=== PATIENT | male | born 1955 | race African-American/Black ===

== ENCOUNTER → 2020-12-19 06:48 | Outpatient (CLI) | payer OTHER, SELFPAY ==
[2020-12-20 01:17] LABS: SARS-CoV-2 RNA PCR Negative
== END ==
PROVIDERS: PCP Internal Medicine; Visit Provider Internal Medicine
DX: Z20.822 Contact with and (suspected) exposure to COVID-19 (principal); R09.89 Other specified symptoms and signs involving the circulatory and respiratory systems
CPT/HCPCS: C9803; U0003; U0005

== ENCOUNTER 2020-12-21 03:40 | Emergency (ER) | payer OTHER, SELFPAY ==
--- NOTE | ~2020-12-21 | XR_ITS ---
EXAMINATION: XR chest 1V portable INDICATION: Cough and congestion TECHNIQUE: Portable AP chest at 0411 hours COMPARISON: 08/29/2019 FINDINGS: There are patchy bilateral airspace opacities. No pleural effusion or pneumothorax is ident ified. The heart size is normal. IMPRESSION: 1. Patchy bilateral airspace opacities, consistent with atelectasis versus pneumonia. Reviewed, dictated and finalized at location A. IMPRESSION: 1. Patchy bilateral airspace opacities, consistent with atelectasis versus pneu monia.
[2020-12-21 03:43] VITALS: BP 156/82; PULSE 77; RESP 18; TEMP 36.1; O2SAT 100
[2020-12-21 04:02] LABS: Basophils Percent Auto 0.6 % (0.2-1.2); Eosinophils Absolute Auto 0.5 K/mm3 (0-0.3); Eosinophils Percent Auto 7.1 % (0-4.4); Hematocrit 40.2 % (42.0-52.0); Hemoglobin 13.6 g/dL (14.0-18.0); Immature Granulocyte Absolute 0.01 K/mm3 (0.00-0.031); Immature Granulocyte Percent A 0.2 % (0-0.5); Lymphocytes Absolute Auto 1.77 K/mm3 (0.9-3.2); Lymphocytes Percent Auto 27.8 % (18.3-44.2); Mean Corpuscular HGB Conc 33.8 g/dl (32-36); Mean Corpuscular Hemoglobin 30.1 pg (26-34); Mean Corpuscular Volume 88.9 fl (80-100); Mean Platelet Volume 9.4 fl (7.4-10.4); Monocytes Absolute Auto 0.6 K/mm3 (0.1-0.6); Monocytes Percent Auto 9.9 % (2.6-8.5); Neutrophils Absolute Auto 3.5 K/mm3 (1.3-6.7); Neutrophils Percent Auto 54.4 % (45.5-73.1); Platelet Count Result 227 k/mm3 (150-375); Red Blood Count 4.52 M/mm3 (4.6-6.20); Red Cell Distribution Width 12.9 % (11.5-14.5); White Blood Count 6.4 K/mm3 (4.5-10.0)
[2020-12-21 04:12] LABS: Alanine Aminotransferase 45 U/L (4-50); Albumin Level 4.6 g/dL (3.5-5.1); Alkaline Phosphatase 61 U/L (38-126); Anion Gap 7 mmol/L (8-16); Aspartate Amino Transferase 44 U/L (17-59); Bilirubin,Total 1.3 mg/dL (0.2-1.3); Blood Urea Nitrogen 20 mg/dL (9-20); Calcium 8.9 mg/dL (8.4-10.2); Carbon Dioxide 32 mmol/L (22-30); Chloride 100 mmol/L (98-107); Estimated CRCL calculation 57 ml/min; Estimated Glomerular Filt Rate 57; Glucose 124 mg/dL (75-110); Potassium 3.6 mmol/L (3.4-5.0); Sodium 139 mmol/L (137-145)
--- NOTE | 2020-12-21 04:17 | ED.URI ---
HPI - URI/Sore Throat General Chief Complaint: Upper Respiratory Infection Stated Complaint: congestion x 5 days, cough, kent Time Seen by Provider: 12/21/20 03:48 History of Present Illness HPI Narrative: Cough and chest congestion for the past 5 days. He feels as though there is phlegm that he cannot clear in his chest. No SOB, fever, chest pain. He does not smoke. Mild ankle swelling chronically. Related Data Home Medications Medication Instructions Recorded Confirmed hydrochlorothiazide 25 mg tablet 25 mg PO DAILY 10/05/20 10/05/20 losartan 100 mg tablet 100 mg PO DAILY 10/05/20 10/05/20 Allergies Allergy/AdvReac Type Severity Reaction Status Date / Time lisinopril AdvReac Mild COUGH Verified 12/21/20 03:42 muscle relaxant-unknown name Allergy Mild Ulcers Uncoded 12/21/20 03:42 Review of Systems Review of Systems: All systems reviewed & are unremarkable except as noted in HPI and below Constitutional: Constitutional: Denies chills, Denies fever(s) and Denies weakness ENT: Reports system reviewed and no additional complaints, except as documented Cardiovascular: Cardiovascular: Denies chest pain Respiratory: Respiratory: Reports chest congestion, Reports cough and Denies dyspnea Gastrointestinal: Gastrointestinal: Reports no additional gastrointestinal complaints, Denies abdominal pain, Denies nausea and Denies vomiting Neurologic: Reports system reviewed and no additional complaints, except as documented [facility] [place] Past Medical History Medical History Complex tear of medial meniscus of left knee as current injury Effusion of left knee Hypertension Obstructive sleep apnea Primary osteoarthritis of both knees Family History Family History Sibling Lung cancer Mother Diabetes mellitus Hypertension Father Hypertension Other Family history of arthritis Family history of cardiovascular disease Family history of malignant neoplasm Social History Social History Smoking status: Never smoker Alcohol intake: current Gender identity (if verbalized by the patient): Male Sexual Orientation (if Verbalized by the Patient): Straight or Heterosexual Exam Const: General: healthy appearing, no acute distress and alert Orientation/consciousness: patient oriented x3 HENMT: Head: normal to inspection Neck: Neck: normal visual inspection and no lymphadenopathy Chest: Chest palpation & inspection: normal inspection of the chest Resp: Effort & Inspection: normal respiratory effort and not labored Auscultation: wheezes Cardio: Rate: regular rate Rhythm: regular rhythm GI: GI Palp: Yes Soft to palpation and No Tenderness to palpation present (GI) Skin: General skin exam: normal color Neuro: General: patient oriented x3 and moves all extremities Speech: normal speech Extrem: General: normal to inspection and no edema Course Vital Signs Vital signs: Vital Signs Temperature 36.1 C L 12/21/20 03:43 Pulse Rate 77 12/21/20 03:43 Respiratory Rate 18 12/21/20 03:43 Blood Pressure 156/82 H 12/21/20 03:43 Pulse Oximetry 100 12/21/20 03:43 Temperature 36.3 C L 12/21/20 05:48 Pulse Rate 62 12/21/20 05:48 Respiratory Rate 16 12/21/20 05:48 Blood Pressure 144/89 H 12/21/20 05:48 Pulse Oximetry 100 12/21/20 05:48 MDM - URI/Sore Throat Differential Diagnosis Differential diagnosis: Likely upper respiratory infection, viral infection, bronchitis and other (pneumonia) Medical Records Attestation: I reviewed the patient's medical records. Lab Data Attestation: I reviewed the patient's lab results. Result diagrams: 12/21/20 03:54 12/21/20 03:54 Labs: Lab Results 12/21/20 12/21/20 12/21/20 Range/Units 03:54 03:54 03:54 WBC 6.4 (4.5-10.0) K/mm3 RBC 4.52 L (
[2020-12-21 04:45] VITALS: PULSE 57; RESP 20
[2020-12-21] MEDS: ALBUTEROL SULFATE NEB 2.5 MG/0.5 ML INH 5 MG INHALATION (04:51)
[2020-12-21] MEDS: IPRATROPIUM BR 0.02% INH SOLN 0.5 MG/2.5 ML VIAL INHALATION (04:52)
[2020-12-21 04:55] VITALS: PULSE 56; RESP 20
[2020-12-21 04:55] LABS: NT Pro B Type Natriuretic Pept 23 PG/ML (5-100)
[2020-12-21 05:48] VITALS: BP 144/89; PULSE 62; RESP 16; TEMP 36.3; O2SAT 100
== END 2020-12-21 05:49 | disposition home or self-care (01) ==
PROVIDERS: Emergency Provider Emergency Medicine; PCP Internal Medicine
DX: J40 Bronchitis, not specified as acute or chronic (principal); I10 Essential (primary) hypertension; G47.33 Obstructive sleep apnea (adult) (pediatric); M17.0 Bilateral primary osteoarthritis of knee
CPT/HCPCS: 36415; 71045; 80053; 83880; 85025; 94640; 99283

== ENCOUNTER 2020-12-29 14:22 | Outpatient (CLI) | payer OTHER, SELFPAY ==
--- NOTE | ~2020-12-29 | US_ITS ---
EXAMINATION:US venous doppler LE LT INDICATION:Left leg pain TECHNIQUE: Multiple grayscale, color flow and Doppler images of the left lower extremity deep venous systems were obtained and reviewed. COMPARISON:06/10/2011 FINDINGS: The common femoral, superficial femoral and popliteal veins demonstrate normal respiratory variation, augmentation and compressibility. Color flow is also seen within the posterior tibial, pe roneal, greater saphenous and profunda veins. IMPRESSION: 1: No lower extremity deep venous thrombosis. Reviewed, dictated and finalized at location B.
== END 2020-12-29 14:23 ==
PROVIDERS: PCP Internal Medicine; Visit Provider Nurse Practitioner
DX: M79.605 Pain in left leg (principal)
CPT/HCPCS: 93971

== ENCOUNTER 2021-06-28 11:30 | Observation (INO) | payer OTHER, SELFPAY ==
[2021-06-28] VITALS (12 sets, daily range): BP systolic 157–196; BP diastolic 59–89; PULSE 54–83; RESP 11–20; TEMP 36.2–36.8; O2SAT 98–100; BMI 36.0
--- NOTE | ~2021-06-28 | XR_ITS ---
EXAMINATION: XR chest 2V EXAM DATE: 06/28/2021 12:00 INDICATION: Left-sided chest pain. Hypertension. TECHNIQUE: Frontal and lateral projections of the chest obtained and reviewed. Comparison is made to prior examination from 12/21/2020. FINDINGS: The lungs are clear. There are no pleural effusions. The cardiomediastinal silhouette is within normal limits. There is no pneumothorax suspected. The bones and soft tissues are unremarkab le. IMPRESSION: No acute cardiopulmonary findings. Reviewed, dictated and finalized at location B.
--- NOTE | 2021-06-28 11:33 | ECG_ITS ---
Measurements Intervals [place] Rate: 68 P: 22 MI: 200 QRS: -16 QRSD: 91 T: 31 QT: 384 QTc: 409 Interpretive Statements SINUS RHYTHM BASELINE ARTIFACT- I, II, III, AVR, AVF, V2-V6 NORMAL ECG Electronically Signed On 06-28-2021 11:42:54 CDT by Gregor Lopez D.O.
[2021-06-28] MEDS: ASPIRIN 81 MG CHEWABLE TABLET 324 MG PO (11:45)
[2021-06-28 11:52] LABS: Basophils Percent Auto 0.5 % (0.2-1.2); Eosinophils Absolute Auto 0.3 K/mm3 (0-0.3); Eosinophils Percent Auto 5.3 % (0-4.4); Hematocrit 43.2 % (42.0-52.0); Hemoglobin 14.8 g/dL (14.0-18.0); Immature Granulocyte Absolute 0.01 K/mm3 (0.00-0.031); Immature Granulocyte Percent A 0.2 % (0-0.5); Lymphocytes Absolute Auto 1.97 K/mm3 (0.9-3.2); Lymphocytes Percent Auto 33.5 % (18.3-44.2); Mean Corpuscular HGB Conc 34.3 g/dl (32-36); Mean Corpuscular Hemoglobin 30.6 pg (26-34); Mean Corpuscular Volume 89.4 fl (80-100); Mean Platelet Volume 9.4 fl (7.4-10.4); Monocytes Absolute Auto 0.4 K/mm3 (0.1-0.6); Monocytes Percent Auto 7.3 % (2.6-8.5); Neutrophils Absolute Auto 3.1 K/mm3 (1.3-6.7); Neutrophils Percent Auto 53.2 % (45.5-73.1); Platelet Count Result 230 k/mm3 (150-375); Red Blood Count 4.83 M/mm3 (4.6-6.20); Red Cell Distribution Width 13.2 % (11.5-14.5); White Blood Count 5.9 K/mm3 (4.5-10.0)
[2021-06-28 11:57] LABS: INR 0.9; Prothrombin Time 12.2 Seconds (11.1-14.7)
[2021-06-28 11:58] LABS: Partial Thromboplastin Time 25.2 SECONDS (22.3-36.8)
--- NOTE | 2021-06-28 12:19 | ED.GENADULT ---
HPI - General Adult General Chief complaint: Chest Pain Stated complaint: chest pain over the weekend Time Seen by Provider: 06/28/21 11:40 Source: patient History of Present Illness HPI narrative: Patient is a 65 y/o male complaining intermittent chest pain since 3 days ago. He describes his pain as an ache and rates it as 10/10 at worst but 0/10 currently. He states that his pain radiates to his left shoulder when it occurs. He took Aspirin at times which did not seem to help. He states that he always feels SOB which is not new. He has no cough or fever. Related Data Allergies Allergy/AdvReac Type Severity Reaction Status Date / Time lisinopril AdvReac Mild COUGH Verified 06/28/21 11:37 muscle relaxant-unknown name Allergy Mild Ulcers Uncoded 06/28/21 11:37 Review of Systems Constitutional: Constitutional: Denies chills, Denies fever(s), Denies headache(s) and Denies weakness Eyes: Eyes: Denies blurry vision ENT: Denies headache(s) and Denies neck pain Cardiovascular: Cardiovascular: Reports chest pain and Reports dyspnea Respiratory: Respiratory: Denies cough and Reports dyspnea Gastrointestinal: Gastrointestinal: Denies abdominal pain, Denies diarrhea, Denies nausea and Denies vomiting Genitourinary: Genitourinary: Denies hematuria and Denies dysuria Musculoskeletal: Musculoskeletal: Denies back pain and Denies neck pain Neurologic: Denies headache(s) and Denies weakness PMF Past Medical History Medical History (Updated 06/28/21 @ 14:46 by Marissa Rocha MD) Complex tear of medial meniscus of left knee as current injury Effusion of left knee Hyperlipidemia Hypertension Obstructive sleep apnea Primary osteoarthritis of both knees Family History Family History Sibling Lung cancer Mother Diabetes mellitus Hypertension Father Hypertension Other Family history of arthritis Family history of cardiovascular disease Family history of malignant neoplasm Social History Social History (Updated 04/06/21 @ 11:23 by Kim Mahajan MA) Smoking packs per day: 0 Smoking cigarettes per day: 0.0 Smoking status: Never smoker Second hand tobacco smoke exposure: Yes Alcohol intake: current Drinks per week: 4 Substance use: never Living arrangements: with family Gender identity (if verbalized by the patient): Male Sexual Orientation (if Verbalized by the Patient): Straight or Heterosexual Spiritual care concerns: No Exam Const: General: no acute distress and well developed Orientation/consciousness: oriented to person, oriented to place, oriented to time and patient oriented x3 HENMT: Head: normocephalic Ears: external ears normal General nose exam: Normal external nose present Eyes: General: appearance normal, both eyes and all related structures Conjunctivae: conjunctivae normal Neck: Neck: normal visual inspection and full ROM Chest: Chest palpation & inspection: normal inspection of the chest and no tenderness Resp: Effort & Inspection: normal respiratory effort Auscultation: clear to auscultation bilaterally Cardio: Rate: regular rate Rhythm: regular rhythm GI: GI Palp: No abdominal tenderness and Yes Soft to palpation Skin: General skin exam: normal color and turgor normal Neuro: General: oriented to person, oriented to place, oriented to time and patient oriented x3 Cognition (Neuro): normal cognition Extrem: General: normal to inspection, full ROM and no pedal edema Psych: Appearance: grossly normal Mental Status: mental status grossly normal Affect: normal affect Course Consultations Consultation #1: Discussed with Dr. Jones, who agrees to admit. Date: 06/28/21 Time: 14:19 Vital Signs Vital signs: Vital Signs Temperature 36.8 C 06/28/21 11:34 Pulse Rate 65 06/28/21 11:34 Respiratory Rate 14 06/28/21 11:34 Blood Pressure 182/89 H 06/28/21 11:34 Pulse Oximetry 100
[2021-06-28 12:25] LABS: D Dimer 0.24 ug/mL (<0.48)
[2021-06-28 12:58] LABS: Anion Gap 9 mmol/L (8-16); Blood Urea Nitrogen 16 mg/dL (9-20); Calcium 9.4 mg/dL (8.4-10.2); Carbon Dioxide 27 mmol/L (22-30); Chloride 105 mmol/L (98-107); Estimated CRCL calculation 67 ml/min; Estimated Glomerular Filt Rate > 60; Glucose 98 mg/dL (65-110); Potassium 3.9 mmol/L (3.4-5.0); Sodium 141 mmol/L (137-145)
[2021-06-28 13:08] LABS: Troponin I < 0.012 ng/mL (0.000-0.034)
[2021-06-28] MEDS: amLODIPine BESYLATE 5 MG TABLET 10 MG PO (13:49)
[2021-06-28 14:55] LABS: Troponin I < 0.012 ng/mL (0.000-0.034)
--- NOTE | 2021-06-28 15:20 | ADMGEN ---
This patient, Joey Mcmahon, was admitted to [facility]. Patient/family oriented to hospital policies and general routines including ID bracelet, bed and alarms, visiting hours, pain management, procedures, bathroom and other care routines, personal items, smoking policy, room service/diet, and visiting hours. Information on how to activate the Rapid Response Team has been discussed. Patient/Family are encouraged to report perceived risks to care and to ask questions if they do not understand what they are told or what they should do.
--- NOTE | 2021-06-28 15:30 | PC.NURSE ---
Pt up in chair eating heart healthy meal ordered by ROUTE VENDING MACHINE SERVICER for pt.
--- NOTE | 2021-06-28 17:24 | ECG_ITS ---
Measurements Intervals [place] Rate: 62 P: 48 VA: 215 QRS: 16 QRSD: 93 T: 29 QT: 388 QTc: 397 Interpretive Statements SINUS RHYTHM WITH SINUS ARRHYTHMIA WITH FIRST DEGREE AV BLOCK INCOMPLETE RIGHT BUNDLE BRANCH BLOCK ABNORMAL ECG Electronically Signed On 06-28-2021 18:05:38 CDT by Gregor Lopez D.O.
[2021-06-28 17:55] LABS: Troponin I < 0.012 ng/mL (0.000-0.034)
--- NOTE | 2021-06-28 18:20 | PC.NURSE ---
JONNATHANAR faxed and tubed to IMU. This RN called and notified them of sending it.
--- NOTE | 2021-06-28 18:20 | PC.NURSE ---
This RN called Dr. Jones with third neg trop, as it was charted in EDP note that pt was discussed with him. Dr. Jones aware of patient, however, never saw the pt due to being told pt was to be admitted for a stress test in the morning. Karen not able to see patient tonight and was under impression that stress test was already ordered. 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 Pt going to IMU for the night. Pt remains pain free, denies SOB, dizziness. Karen aware neg trop x3, no EKG changes.
--- NOTE | 2021-06-28 18:32 | PC.NURSE ---
This RN called report to KATHERINE Amor RN.
[2021-06-29] VITALS (8 sets, daily range): BP systolic 146–153; BP diastolic 67–76; PULSE 53–88; RESP 20–24; TEMP 35.6–36.6; O2SAT 99–100
--- NOTE | 2021-06-29 | EST_ITS ---
Patient Info Name: Joey Mcmahon Age: 65 years : 1955 Gender: Male Ht: 71 in Wt: 258 lbs BSA: 2.46 m2 BP: 172 / 94 mmHg Exam Date: 06/29/2021 9:50 AM Exam Location: [facility] Patient Status: Inpatient Admit Date: 06/28/2021 Staff Ordering Physician: Umair Jones MD Correspondence Representative: Dwayne Rouse RDCS, RT Attending Provider: Umair Jones MD Referring Physician: Karen FULLER; Exam Type: CA stress echo Study Info Indications R07.9 - Chest pain, unspecified Treadmill exercise stress echocardiogram is performed. Summary 1. Hypertensive blood pressure response with exercise. 2. Abnormal exercise ECG with 1.5-1.[address] segment depression seen in the inferior leads. Significant artifact is noted however with exercise and early in recovery, there are no abnormal ST segments. 3. No exercise-induced chest pain. 4. Normal echocardiographic imaging without exercise-induced wall motion abnormalities. Good augmentation of all wall segments. LV cavity size is smaller. Stress Echo Findings Left Ventricle Normal left venticular systolic function with no regional wall motion abnormalities noted at rest. No regional wall motion abnormalities noted post stress. Normal augmentation of all wall segments without evidence of ischemia with stress. Left ventricular end systolic volume decreases post stress. Overall global left ventricular systolic function Improved post stress. Left Ventricle Left ventricular chamber size, wall thickness, systolic and diastolic function are normal with no regional wall motion abnormalities with an estimated ejection fraction of 65-70%. Protocol: [place]ian Stress ECG Details Stage: REST Duration (min): 2 min : 36 sec Speed (mph): 0.0 Grade (%): 0 HR (bpm): 62 SBP (mmHg): 172 DBP (mmHg): 94 METS: --- Stage: REST Duration (min): 6 min : 56 sec Speed (mph): 0.0 Grade (%): 0 HR (bpm): 77 SBP (mmHg): 172 DBP (mmHg): 94 METS: --- Stage: STAGE 1 Duration (min): 1 min : 0 sec Speed (mph): 1.7 Grade (%): 10 HR (bpm): 96 SBP (mmHg): 172 DBP (mmHg): 94 METS: --- Stage: STAGE 1 Duration (min): 2 min : 0 sec Speed (mph): 1.7 Grade (%): 10 HR (bpm): 104 SBP (mmHg): 172 DBP (mmHg): 94 METS: --- Stage: STAGE 1 Duration (min): 3 min : 0 sec Speed (mph): 1.7 Grade (%): 10 HR (bpm): 111 SBP (mmHg): 208 DBP (mmHg): 86 METS: --- Stage: STAGE 2 Duration (min): 1 min : 0 sec Speed (mph): 2.5 Grade (%): 12 HR (bpm): 120 SBP (mmHg): 208 DBP (mmHg): 86 METS: --- Stage: STAGE 2 Duration (min): 2 min : 0 sec Speed (mph): 2.5 Grade (%): 12 HR (bpm): 130 SBP (mmHg): 208 DBP (mmHg): 86 METS: --- Stage: STAGE 2 Duration (min): 3 min : 0 sec Speed (mph): 2.5 Grade (%): 12 HR (bpm): 132 SBP (mmHg): 228 DBP (mmHg): 55 METS: --- Stage: STAGE 3 Duration (min): 0 min : 31 sec Speed (mph): 0.0 Grade (%): 0 HR (bpm): 129
--- NOTE | 2021-06-29 06:58 | PM.IMHP ---
H&P: HPI History of Present Illness Date/Time: 06/29/21 06:58 Chief Complaint: Chest pain Narrative: This is a 65-year-old man was admitted to my service from the emergency room yesterday evening because of chest pain. He is not known to have any cardiac problems prior to this and states that Monday and Monday of last week and he was experiencing some chest pain he describes the pain as a dull non specific aching sensation in the center of his chest that began on Monday her in the morning hours while he was at home. Pain with a dull aching sensation that did not radiate to any other location it did not cause him to become diaphoretic nauseated or a experience air hunger. With physical activity such as walking or other aerobic activity he does not trigger chest pain in general. He states the pain was less intense on Monday and then by yesterday was largely alleviated. He decided yesterday to come to the emergency room to be evaluated at that time as mentioned above he was pain free he had a normal looking electrocardiogram and 1 normal set of troponins. The ER physician made the decision to admit him to rule out acute coronary syndrome. He does not experience orthopnea or PND he does have some occasional mild pedal edema that he says will be more noticeable if he is up on his feet all day. He does not have any sense of palpitations or syncope. His only significant no known medical problem is hypertension for which he takes losartan. He had a stress test performed by his previous physician's orders he says something like 10 or 15 years ago he can not really remember the reason why the test was done he recalls being told it was normal. He has had previous knee surgery. The gentleman does not know any history of dyslipidemia he is a lifelong nonsmoker. One paternal uncle had coronary disease but not at a premature age. Review of Systems Constitutional: Constitutional: Reports no additional constitutional complaints Eyes: Eyes: Reports no additional eye complaints ENT: Reports system reviewed and no additional complaints, except as documented Cardiovascular: Cardiovascular: Reports as per HPI Respiratory: Respiratory: Reports no additional respiratory complaints Gastrointestinal: Gastrointestinal: Reports no additional gastrointestinal complaints Musculoskeletal: Musculoskeletal: Reports arthralgias Comments: Degenerative joint disease Neurologic: Reports as per HPI [facility] Past Medical History Medical History Complex tear of medial meniscus of left knee as current injury Effusion of left knee Hyperlipidemia Hypertension Obstructive sleep apnea Primary osteoarthritis of both knees Family History Family History Sibling Lung cancer Mother Diabetes mellitus Hypertension Father Hypertension Other Family history of arthritis Family history of cardiovascular disease Family history of malignant neoplasm Social History Social History Smoking packs per day: 0 Smoking cigarettes per day: 0.0 Smoking status: Never smoker Second hand tobacco smoke exposure: Yes Alcohol intake: current Drinks per week: 4 Substance use: never Living arrangements: with family Gender identity (if verbalized by the patient): Male Sexual Orientation (if Verbalized by the Patient): Straight or Heterosexual Spiritual care concerns: No Meds Home Medications and Allergies Home Medications Medication Instructions Recorded Confirmed Type losartan 100 mg tablet 100 mg PO DAILY #90 tablet 02/02/21 06/28/21 Rx atorvastatin 10 mg tablet 10 mg PO DAILY #90 tablet 04/05/21 06/28/21 Rx Allergies Allergy/AdvReac Type Severity Reaction Status Date / Time lisinopril AdvReac Mild COUGH Verified 06/28/21 11:37 muscle relaxant-unknown name Allergy Mild Ulcers Un
--- NOTE | 2021-06-29 09:30 | PC.NURSE ---
Pt to stress lab for stress echo.
--- NOTE | 2021-06-29 10:07 | PC.NURSE ---
Pt returned via wheelchair
--- NOTE | 2021-06-29 11:32 | PM.DS ---
DS: Admitting Diagnosis Discharge Date 06/29/2021 Admitting Diagnosis Chest pain DS: Discharge Diagnosis Discharge Diagnosis (1) Atypical chest pain: Code(s): R07.89 - Other chest pain Status: Acute Assessment and Plan: Underwent stress echocardiogram today that did not elicit any exercise induced chest pain, no diagnostic ST changes noted on EKG during the dest. Normal echocardiographic imaging. Summary of results as below: 1. Hypertensive blood pressure response with exercise. 2. Abnormal exercise ECG with 1.5-1.[address] segment depression seen in the inferior leads. Significant artifact is noted however with exercise and early in recovery, there are no abnormal ST segments. 3. No exercise-induced chest pain. 4. Normal echocardiographic imaging without exercise-induced wall motion abnormalities. Good augmentation of all wall segments. LV cavity size is smaller. (2) Hypertension: Code(s): I10 - Essential (primary) hypertension Status: Acute Assessment and Plan: Not currently at goal. Antihypertensives to be adjusted as an outpatient by PCP DS: Summary Hospital Course Hospital Course: Admitted with complaints of chest pain. Serial troponins were negative and ECG did not show any ST or T changes concerning for ischemia. Stress echocardiogram was ordered and showed: 1. Hypertensive blood pressure response with exercise. 2. Abnormal exercise ECG with 1.5-1.[address] segment depression seen in the inferior leads. Significant artifact is noted however with exercise and early in recovery, there are no abnormal ST segments. 3. No exercise-induced chest pain. 4. Normal echocardiographic imaging without exercise-induced wall motion abnormalities. Good augmentation of all wall segments. LV cavity size is smaller. Patient is stable to be discharged to home today with office follow up scheduled with Dr. oJnes. Time Spent with Patient Time attestation: Total time spent providing and/or coordinating discharge services: Exam Const: General: comfortable and no acute distress Other: Well-developed well-nourished black male pleasant comfortable cooperative no apparent distress HENMT: Mouth: Yes moist mucous membranes Eyes: Sclera: sclerae normal Pupils: Equal, round and reactive pupils present Neck: Neck: supple and no JVD Carotids: bruit Resp: Effort & Inspection: normal respiratory effort Auscultation: clear to auscultation bilaterally Cardio: Rate: regular rate Rhythm: regular rhythm Other: PMI is of normal location and activity no murmur no gallop GI: Auscultation: normal bowel sounds Skin: General skin exam: normal color Neuro: Cranial nerves: Yes Equal, round and reactive pupils present Cognition (Neuro): normal cognition Extrem: General: normal to inspection DS: Data Data Completed and Pending Labs on day of discharge: Labs from last 24 hours 06/28/21 06/28/21 06/28/21 17:23 14:29 12:04 WBC RBC Hgb Hct MCV MCH MCHC RDW Plt Count MPV Immature Gran % (Auto) Neut % (Auto) Lymph % (Auto) Roberts % (Auto) Eos % (Auto) Baso % (Auto) Lymph # (Auto) Roberts # (Auto) Eos # (Auto) Baso # (Auto) Abs Immat Gran (auto) Absolute Neuts (auto) Absolute Nucleated RBC Nucleated RBC % PT INR APTT D-Dimer 0.24 Sodium Potassium Chloride Carbon Dioxide Anion Gap BUN Creatinine Estim Creat Clear Calc Estimated GFR Glucose Calcium Troponin I < 0.012 < 0.012 06/28/21 06/28/21 06/28/21 11:42 11:42 11:42 WBC 5.9 RBC 4.83 Hgb 14.8 Hct 43.2 MCV 89.4 MCH 30.6 MCHC 34.3 RDW 13.2 Plt Count 230 MPV 9.4 Immature Gran % (Auto) 0.2 Neut % (Auto) 53.2 Lymph % (Auto) 33.5 Roberts % (Auto) 7.3 Eos % (Auto) 5.3 H Baso % (Auto) 0.5 Lymph # (Auto) 1.97 Roberts # (Auto)
== END 2021-06-29 12:55 | disposition home or self-care (01) ==
LOC: ANHED 11:44 → ANHCPC 14:37 → ANHIMU 18:52
PROVIDERS: Emergency Medicine; Admitting Provider Specialist; Emergency Provider Emergency Medicine; PCP Internal Medicine; Visit Provider Specialist
DX: R07.89 Other chest pain (principal); R06.02 Shortness of breath; I10 Essential (primary) hypertension; E78.5 Hyperlipidemia, unspecified; G47.33 Obstructive sleep apnea (adult) (pediatric)
CPT/HCPCS: 36415; 71046; 80048; 84484; 85025; 85380; 85610; 85730; 93005; 93351; 99285; A9270; G0378

== ENCOUNTER 2021-09-21 17:03 | Emergency (ER) | payer OTHER, MEDICARE, SELFPAY ==
[2021-09-21 17:42] VITALS: BP 179/78; PULSE 80; RESP 16; TEMP 37; O2SAT 98
--- NOTE | 2021-09-21 17:42 | ED.GENADULT ---
HPI - General Adult General Chief complaint: Medical Clearance Stated complaint: High Blood Pressure,Headache Time Seen by Provider: 09/21/21 17:42 Source: patient and RN notes reviewed Mode of arrival: ambulatory Limitations: no limitations History of Present Illness HPI narrative: 66-year-old male presents to the [facility] with complaints of elevated blood pressure, 190s over 100s this past week. States he has had a splitting headache generalized for the last 5 days. Denies any blurry vision change in vision. No neurologic deficits. No chest pain or shortness of breath. No abdominal pain, nausea, vomiting. Related Data Allergies Allergy/AdvReac Type Severity Reaction Status Date / Time lisinopril AdvReac Mild COUGH Verified 09/21/21 17:59 muscle relaxant-unknown name Allergy Mild Ulcers Uncoded 09/21/21 17:59 Review of Systems Review of Systems: All systems reviewed & are unremarkable except as noted in HPI and below Constitutional: Constitutional: Reports no additional constitutional complaints, Denies chills and Denies fever(s) Eyes: Eyes: Reports no additional eye complaints, Denies change in vision and Denies photophobia ENT: Reports system reviewed and no additional complaints, except as documented Cardiovascular: Cardiovascular: Reports no additional cardiovascular complaints Respiratory: Respiratory: Reports no additional respiratory complaints Gastrointestinal: Gastrointestinal: Reports no additional gastrointestinal complaints Musculoskeletal: Musculoskeletal: Reports no additional musculoskeletal complaints Integumentary/Breasts: Skin/Breast: Reports system reviewed and no additional complaints, except as docu Neurologic: Reports headache(s) (Generalized) Psychiatric: Psychiatric: Reports no additional psychiatric complaints Allergic/Immunologic: Allergic/Immunologic: Reports no additional allergic/immunologic complaints [facility] Past Medical History Medical History Complex tear of medial meniscus of left knee as current injury Effusion of left knee Hyperlipidemia Hypertension Obstructive sleep apnea Primary osteoarthritis of both knees Family History Family History Sibling Lung cancer Mother Diabetes mellitus Hypertension Father Hypertension Other Family history of arthritis Family history of cardiovascular disease Family history of malignant neoplasm Social History Social History Smoking packs per day: 0 Smoking cigarettes per day: 0.0 Smoking status: Never smoker Second hand tobacco smoke exposure: Yes Alcohol intake: current Drinks per week: 4 Substance use: never Gender identity (if verbalized by the patient): Male Sexual Orientation (if Verbalized by the Patient): Straight or Heterosexual Spiritual care concerns: No Comments At the time of my signature, I reviewed and agree with the nursing past medical, surgical, social, and family history. There is no relevant family history pertinent to the patient complaint. Exam Const: General: healthy appearing, no acute distress and alert Nutritional Appearance: well nourished Orientation/consciousness: patient oriented x3 Limitations: no limitations HENMT: Head: normal to inspection Ears: external ears normal, TM's normal bilaterally and EAC's normal Eyes: Conjunctivae: conjunctivae normal Pupils: Equal, round and reactive pupils present Neck: Neck: normal visual inspection, no lymphadenopathy and no meningeal signs Chest: Chest palpation & inspection: normal inspection of the chest Resp: Effort & Inspection: normal respiratory effort and no use of accessory muscles Auscultation: clear to auscultation bilaterally, no crackles, no rales, no rhonchi and no wheezes Cardio: Rate: regular rate Rhythm: regular rhythm GI: GI Palp: Yes Soft to palpation and No
== END 2021-09-21 17:52 | disposition short-term general hospital (02) ==
PROVIDERS: Emergency Provider Nurse Practitioner; PCP Internal Medicine
DX: I10 Essential (primary) hypertension (principal); E78.5 Hyperlipidemia, unspecified; G47.33 Obstructive sleep apnea (adult) (pediatric); M17.0 Bilateral primary osteoarthritis of knee
CPT/HCPCS: 99212; G0463

== ENCOUNTER 2021-09-21 18:26 | Emergency (ER) | payer OTHER, MEDICARE, SELFPAY ==
--- NOTE | ~2021-09-21 | CT_ITS ---
EXAMINATION: CT brain wo con DATE: 09/21/2021 23:38 INDICATION: Headache. TECHNIQUE: Computed tomography (CT) of the head was performed without intravenous contrast. The mA wa s adjusted according to patient size. Iterative reconstruction technique was employed. The dose-lengt h product was 681.00 mGy-cm. COMPARISON: None FINDINGS: There are scattered areas of low attenuation in the cerebral white matter. There is no intr acranial hemorrhage, acute infarction, or abnormal intracranial mass lesion. The ventricles are kirill l in size. There is mild mucosal thickening in the paranasal sinuses. The orbits are normal. The mast oid air cells are normal. IMPRESSION: 1. Mild nonspecific cerebral white matter disease, which likely represents chronic small vessel ische nat disease. Reviewed, dictated and finalized at location A. CAL APPOINTMENT CLERK IMPRESSION: 1. 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
[2021-09-21 18:29] VITALS: BP 190/94; PULSE 80; RESP 18; TEMP 37.1; O2SAT 97
[2021-09-21 22:50] VITALS: BP 191/107; PULSE 73; RESP 17; O2SAT 98
--- NOTE | 2021-09-21 22:55 | ED.GENADULT ---
HPI - General Adult General Chief complaint: Headache Stated complaint: htn, headache Time Seen by Provider: 09/21/21 22:48 Source: patient and RN notes reviewed History of Present Illness HPI narrative: Patient is a 66 y/o male complaining of sharp, generalized headache for last 4-5 days. There is no alleviating or exacerbating factor. He has no nausea, vomiting, fever, neck pain, focal weakness or numbness. He states that his BP has been high. He is compliant with BP med. He is currently on Losartan. Related Data Allergies Allergy/AdvReac Type Severity Reaction Status Date / Time lisinopril AdvReac Mild COUGH Verified 09/21/21 17:59 muscle relaxant-unknown name Allergy Mild Ulcers Uncoded 09/21/21 17:59 Review of Systems Constitutional: Constitutional: Denies chills, Denies fever(s), Reports headache(s) and Denies weakness Eyes: Eyes: Denies blurry vision ENT: Reports headache(s) and Denies neck pain Cardiovascular: Cardiovascular: Denies chest pain and Denies dyspnea Respiratory: Respiratory: Denies cough and Denies dyspnea Gastrointestinal: Gastrointestinal: Denies abdominal pain, Denies diarrhea, Denies nausea and Denies vomiting Genitourinary: Genitourinary: Denies hematuria and Denies dysuria Musculoskeletal: Musculoskeletal: Denies back pain and Denies neck pain Neurologic: Reports headache(s) and Denies weakness PMFSH Past Medical History Medical History Complex tear of medial meniscus of left knee as current injury Effusion of left knee Hyperlipidemia Hypertension Obstructive sleep apnea Primary osteoarthritis of both knees Family History Family History Sibling Lung cancer Mother Diabetes mellitus Hypertension Father Hypertension Other Family history of arthritis Family history of cardiovascular disease Family history of malignant neoplasm Social History Social History Smoking packs per day: 0 Smoking cigarettes per day: 0.0 Smoking status: Never smoker Second hand tobacco smoke exposure: Yes Alcohol intake: current Drinks per week: 4 Substance use: never Gender identity (if verbalized by the patient): Male Sexual Orientation (if Verbalized by the Patient): Straight or Heterosexual Spiritual care concerns: No Exam Const: General: no acute distress and well developed Orientation/consciousness: oriented to person, oriented to place, oriented to time and patient oriented x3 HENMT: Head: normocephalic Ears: external ears normal General nose exam: Normal external nose present Eyes: General: appearance normal, both eyes and all related structures Conjunctivae: conjunctivae normal Neck: Neck: normal visual inspection and full ROM Chest: Chest palpation & inspection: normal inspection of the chest and no tenderness Resp: Effort & Inspection: normal respiratory effort Auscultation: clear to auscultation bilaterally Cardio: Rate: regular rate Rhythm: regular rhythm GI: GI Palp: No abdominal tenderness and Yes Soft to palpation Skin: General skin exam: normal color and turgor normal Neuro: General: oriented to person, oriented to place, oriented to time and patient oriented x3 Cranial nerves: Yes CN's II-XII intact bilaterally Cognition (Neuro): normal cognition Speech: normal speech Motor exam (neuro): 5/5 motor strength present throughout Sensory Exam: normal sensation Coordination: snwzez-np-nxjp test normal and ftwa-dc-msmo test normal Extrem: General: normal to inspection, full ROM and no pedal edema Psych: Appearance: grossly normal Mental Status: mental status grossly normal Affect: normal affect Course Reevaluation(s) Reevaluation #1: Rechecked. Patient feels better. He has no headache at this time. Date: 09/22/21 Time: 00:10 Vital Signs Vital signs: Vital Signs Temperature 37.1
[2021-09-21 23:13] LABS: Basophils Percent Auto 0.6 % (0.2-1.2); Eosinophils Absolute Auto 0.3 K/mm3 (0-0.3); Eosinophils Percent Auto 5.2 % (0-4.4); Hematocrit 41.5 % (42.0-52.0); Hemoglobin 14.3 g/dL (14.0-18.0); Immature Granulocyte Absolute 0.01 K/mm3 (0.00-0.031); Immature Granulocyte Percent A 0.2 % (0-0.5); Lymphocytes Absolute Auto 1.75 K/mm3 (0.9-3.2); Lymphocytes Percent Auto 26.6 % (18.3-44.2); Mean Corpuscular HGB Conc 34.5 g/dl (32-36); Mean Corpuscular Hemoglobin 30.8 pg (26-34); Mean Corpuscular Volume 89.4 fl (80-100); Mean Platelet Volume 9.3 fl (7.4-10.4); Monocytes Absolute Auto 0.5 K/mm3 (0.1-0.6); Monocytes Percent Auto 7.1 % (2.6-8.5); Neutrophils Percent Auto 60.3 % (45.5-73.1); Platelet Count Result 234 k/mm3 (150-375); Red Blood Count 4.64 M/mm3 (4.6-6.20); Red Cell Distribution Width 13.2 % (11.5-14.5); White Blood Count 6.6 K/mm3 (4.5-10.0)
[2021-09-21] MEDS: amLODIPine BESYLATE 5 MG TABLET 10 MG PO (23:19)
[2021-09-21 23:22] LABS: INR 0.9; Prothrombin Time 12.2 Seconds (11.1-14.7)
[2021-09-21 23:23] LABS: Anion Gap 13 mmol/L (8-16); Blood Urea Nitrogen 17 mg/dL (9-20); Calcium 9.2 mg/dL (8.4-10.2); Carbon Dioxide 24 mmol/L (22-30); Chloride 102 mmol/L (98-107); Estimated CRCL calculation 57 ml/min; Estimated Glomerular Filt Rate 57; Glucose 113 mg/dL (65-110); Partial Thromboplastin Time 26.7 SECONDS (22.3-36.8); Sodium 139 mmol/L (137-145)
[2021-09-21 23:57] VITALS: BP 164/90; PULSE 63; RESP 16; O2SAT 100
== END 2021-09-22 00:52 | disposition home or self-care (01) ==
PROVIDERS: Emergency Provider Emergency Medicine; PCP Internal Medicine
DX: I12.9 Hypertensive chronic kidney disease with stage 1 through stage 4 chronic kidney disease, or unspecified chronic kidney disease (principal); N18.9 Chronic kidney disease, unspecified; R51.9 Headache, unspecified; E78.5 Hyperlipidemia, unspecified; G47.33 Obstructive sleep apnea (adult) (pediatric); M17.0 Bilateral primary osteoarthritis of knee
CPT/HCPCS: 36415; 70450; 80048; 85025; 85610; 85730; 99284; A9270

== ENCOUNTER → 2021-09-22 09:13 | Outpatient (CLI) | payer OTHER, MEDICARE, SELFPAY ==
[2021-09-22 13:55] LABS: Influenza A QL RT-PCR Negative (Negative); Influenza B QL RT-PCR Negative (Negative); SARS-CoV-2 RNA PCR Negative
== END ==
PROVIDERS: PCP Internal Medicine; Visit Provider Internal Medicine
DX: R09.89 Other specified symptoms and signs involving the circulatory and respiratory systems (principal); Z20.822 Contact with and (suspected) exposure to COVID-19
CPT/HCPCS: 87502; C9803; U0003; U0005

== ENCOUNTER 2023-02-04 22:00 | Emergency (ER) | payer MEDICARE, SELFPAY ==
[2023-02-04 22:09] VITALS: BP 186/90; PULSE 79; RESP 16; TEMP 36.4; O2SAT 98
--- NOTE | 2023-02-04 23:41 | ED.GENADULT ---
HPI - General Adult General Chief complaint: Unspecified Stated complaint: stung by insect Time Seen by Provider: 02/04/23 23:19 Source: patient Mode of arrival: ambulatory Limitations: no limitations History of Present Illness HPI narrative: This is a 67-year-old male who presents to the ED with chief complaint of an insect bite occurring just prior to arrival. Patient states that he was sitting outside and a horse fly bit him in the left index finger. He was concerned because there was a large amount of bleeding at the time. He is unsure if he needs antibiotics. Denies any further site of pain or injury. Related Data Allergies Allergy/AdvReac Type Severity Reaction Status Date / Time lisinopril AdvReac Mild COUGH Verified 09/13/22 09:26 muscle relaxant-unknown name Allergy Mild Ulcers Uncoded 09/13/22 09:26 Review of Systems Review of Systems: CONSTITUTIONAL: Denies fever, chills, or sweats. SKIN: See HPI MUSCULOSKELETAL: Denies back pain, joint pain, or myalgia. NEUROLOGIC: Denies headache, numbness, dizziness, or weakness. PSYCHIATRIC: Denies anxiety or depression. [facility] Past Medical History Medical History Complex tear of medial meniscus of left knee as current injury Effusion of left knee Hyperlipidemia Hypertension Obstructive sleep apnea Primary osteoarthritis of both knees Family History Family History Sibling Lung cancer Mother Diabetes mellitus Hypertension Father Hypertension Other Family history of arthritis Family history of cardiovascular disease Family history of malignant neoplasm Social History Social History (Updated 09/13/22 @ 09:33 by Madelyn Pierre MA) Social History: He is a never smoker. Drinks beer socially, not daily. Denies illicit substance use. 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 He lives at home in [place] with his and two children. Smoking packs per day: 0 Smoking cigarettes per day: 0.0 Smoking status: Never smoker Second hand tobacco smoke exposure: Yes Alcohol intake: current Drinks per week: 4 Alcohol use details: social Substance use: never Substance use type: does not use Lack of Transportation: No Lack of Food: Never True Current Housing: I Have Housing Concerned About Future Housing: No Difficulty Paying Gas/Electric Bills: No Difficulty Paying for Meds: No Currently Unemployed: No Education: High School Diploma/GED Difficulty w/ Childcare or Family Care: No Living arrangements: with family Gender identity (if verbalized by the patient): Male Sexual Orientation (if Verbalized by the Patient): Straight or Heterosexual Spiritual care concerns: No Exam Narrative: GENERAL: Well-appearing, well-nourished, and in no acute distress. MSK: Full range of motion of the hand. Neurovascularly intact. SKIN: Pinpoint bite rolando lesion to the left index finger. No active bleeding. Warm, dry, no rash. NEURO: Alert and oriented x3. No focal deficits. PSYCH: Normal mood and affect. Course Vital Signs Vital signs: Vital Signs Temperature 97.6 F 02/04/23 22:09 Pulse Rate 79 02/04/23 22:09 Respiratory Rate 16 02/04/23 22:09 Blood Pressure 186/90 H 02/04/23 22:09 Pulse Oximetry 98 02/04/23 22:09 Oxygen Delivery Room Air 02/04/23 22:09 Temperature 97.6 F 02/04/23 22:09 Pulse Rate 79 02/04/23 22:09 Respiratory Rate 16 02/04/23 22:09 Blood Pressure 186/90 H 02/04/23 22:09 Pulse Oximetry 98 02/04/23 22:09 Oxygen Delivery Room Air 02/04/23 22:09 Medical Decision Making MDM Narrative Medical decision making narrative: This is a 67-year-old male presents to the ED with chief complaint of an insect bite. Vitals are stable. Exam is benign. There are no visible lesions or active bleeding o
== END 2023-02-04 23:51 | disposition home or self-care (01) ==
PROVIDERS: Emergency Provider Physician Assistant; PCP Internal Medicine
DX: S61.251A Open bite of left index finger without damage to nail, initial encounter (principal); E78.5 Hyperlipidemia, unspecified; I10 Essential (primary) hypertension; G47.33 Obstructive sleep apnea (adult) (pediatric); M17.0 Bilateral primary osteoarthritis of knee; W57.XXXA Bitten or stung by nonvenomous insect and other nonvenomous arthropods, initial encounter
CPT/HCPCS: 99281

== ENCOUNTER 2024-03-25 21:19 | Emergency (ER) | payer OTHER, MEDICARE, SELFPAY ==
[2024-03-25 21:24] VITALS: BP 159/70; PULSE 79; RESP 16; TEMP 36.6; O2SAT 100
--- NOTE | 2024-03-25 21:29 | PC.NURSE ---
after triage assessment pt verbalized that he did not want to wait, he was going to go home and consult his pcp in the morning. pt told he is always welcome to come back.
== END 2024-03-25 22:12 | disposition left against medical advice (07) ==
LOC: ANHED 21:47
PROVIDERS: PCP Nurse Practitioner
DX: I10 Essential (primary) hypertension (principal)
CPT/HCPCS: 99199

== ENCOUNTER 2024-10-18 10:30 | Emergency (ER) | payer OTHER, MEDICARE, SELFPAY ==
--- NOTE | ~2024-10-18 | XR_ITS ---
EXAMINATION: XR foot RT min 3V DATE: 10/18/2024 12:03 INDICATION: Posttraumatic dorsal right foot pain TECHNIQUE: Dorsoplantar, two oblique and lateral views of the right foot were obtained. COMPARISON: None. FINDINGS: Bone alignment is normal. No fracture. There is mild polyarticular osteoarthritis at the first metata rsophalangeal and several tarsal metatarsal and interphalangeal joints. There are 3 thin wire-like me tallic foreign bodies measuring up to 3 mm in maximal length and the lateral plantar soft tissues at the great toe at the level of the base of the distal phalanx. Mild soft tissue swelling over the dors olateral aspect of the mid and forefoot. IMPRESSION: 1. Mild polyarticular osteoarthritis at the right foot. No acute osseous abnormality. 2. 3 thin wire-like metallic foreign bodies in the plantar soft tissues of the right first distal pha lanx. Reviewed, dictated and finalized at location [facility] IMPRESSION: 1. Mild polyarticular osteoarthritis at the right foot. No acute osseous abnorm ality. 2. 3 thin wire-like metallic foreign bodies in the plantar soft tissues of the right first distal phalanx.
[2024-10-18 10:34] VITALS: BP 167/66; PULSE 88; RESP 16; TEMP 36.4; O2SAT 98
--- OUTSIDE RECORDS SUMMARY | 2024-10-18 10:46 | XMS_ITS | Continuity of Care Document ---
Author Organization [facility] Address [address] [place] [address] Phone Care Team Providers Care Plug Paster Name Role Phone Erik Li MD Unavailable Unavailable Medications Medication Instructions Dosage Effective Dates (start - stop) Status Comments NASONEX 50MCG APPLICS 2 QAM - Acti ve FRANKIE-D 12 HOUR 120-60MG TAB 1 BID - Active FLONASE 50MCG APPLICS 2 QPM - Acti ve Advance Directives Directive Yes / No Effective Date File Name No Information Encounters Encounter Description Practice Location Reason(s) For Visit Diagnoses Date Provider Providers Copied on Encounter [facility], [address], [place], [id number], tel:[phone] [facility] No Information Guillermo Valencia. [address], [id number], . tel:[phone] [facility], [address], [place], [address], tel:[phone] [facility] NASAL & SINUS DIS NECALLERGIC RHINITIS NEC Guillermo Valencia. [address], [id number], [place]. tel:[phone] [facility], [address], [place], [place], [address], tel:[phone] [facility] NASAL & SINUS DIS NECCHRONIC RHINITIS Guillermo Valencia. [address], [id number], . tel:[phone] Family History Family Member Type Diagnosis Age At Onset No Information Payers Payer name Insurance type Covered alliance party ID Authoriza tion(s) No Information Social History Type Description Quantity Date Captured Comments Sex Male Smoking Status No Information Chief Complaint And Reason For Visit No Information Reason For Referral Reason For Referral No Information History Of Present Illness Encounter Date Complaint History Of Prese nt Illness No Information Functional Status Date Functional Assessmen t No Information Instructions Date Instruction Additional Infor mation No Information Assessments Type Assessment Date No Information Patient Care Teams Name Effective Dates (start - stop) Status Members No Information
--- OUTSIDE RECORDS SUMMARY | 2024-10-18 12:11 | XMS_ITS | Continuity of Care Document ---
Author Organization [facility] Address [address] [place] [address] Phone Care Team Providers Care Injection Molding Machine Tender Name Role Phone Erik Li MD Unavailable [...] Diagnoses Date Provider Providers Copied on Encounter [facility], [address], [place], [address], tel:[phone] [facility] No Information Guillermo Valencia. [address], [id number], . tel:[phone] [facility], [address], [place], [address], tel:[phone] [facility] NASAL & SINUS DIS NECALLERGIC RHINITIS NEC Guillermo Valencia. [address], [id number], [place]. tel:[phone] [facility], [address], [place], [place], [address], tel:[phone] [facility] NASAL & SINUS DIS NECCHRONIC RHINITIS Guillermo Valencia. [address], [id number], . tel:[phone] Family History Family Member Type Diagnosis Age At Onset No Information Payers Payer name Insurance type Covered green party ID Authoriza tion(s) No Information Social [...]
--- OUTSIDE RECORDS SUMMARY | 2024-10-18 12:11 | XMS_ITS | Data Portability ---
Author Organization [facility] (11[facility] Address [address] [facility] [address] [place] [address] Care Team Providers Care Security Investigator Name Role Phone DANILO GRECO Referring Provider [phone] Assessment Encounter Date Assessment Date Assessment LastModified by Organization Details LastModified Time 12/09/2015 12/09/2015 Patient is compliant with CPAP and he feels better. He will continue to use it and I'll see him in one year. [email or web address] Not available 12/09/2015 11:35:27 10/02/2018 10/02/2018 Patient is compliant with CPAP and he feels better. But the part of the time he sleeps on the recliner without the CPAP. I have told him to use the CPAP any time he sleeps. [email or web address] Not available 10/02/2018 13:44:37 Plan of Treatment Reminders Order Date Submit Date Provider Last Modified By Organization Details Last Modified Time Details Appointments None record ed. Lab None record ed. Referral None record ed. Procedures None record ed. Surgeries None record ed. Imaging None record ed. Medication Orders None record ed. Patient TargetsNo targets recorded. Patient InstructionsNo instructions recorded. Reason for Referral None Reported. Problems Name Problem SNOMED Code Status Onset Date Resolution Date Notes Provider Name and Address Organization Details Recorded Time Obstructive sleep apnea of adult 0735326090562 Active FIONA CRUM MD, DAB, F.C.C.P. NPI [id number] 8 [address] [facility] [address], [place], [address], [facility] 6 11:35:27 Problem Notes None recorded. Procedures Surgical History Date Name Laterality Status Provider Name and Address Organization Details Recorded Time Knee Surgery completed FIONA CRUM MD, Gadiel PRICE.C.C.P. [address], [place], [address], [facility] 10/02/2018 13:29:53 Imaging Results None recorded. Procedure Notes None recorded. Medical Equipment None Reported. Allergies Allergen ID Allergen Name Allergen Category Reaction Reaction Severity Criticality Documentation Date Start Date Code Code System Note Provider Name and Address Organization Details Recorded Time 5861 cyclobenz aprine hydrochlo ride medicatio n Not available Not available Not available 12/09/2015 40532 RxNorm Not Available Not Available Not Available Medications Name Sig Start Date Stop Date Status Note LastModified by Organization Details LastModified Time prednisone 20 mg tablet active Not Available Not Available No t Available losartan 100 mg-hydrochloro thiazide 25 mg tablet active Not Available Not Available Not Available benzonatate 100 mg capsule active Not Available Not Availab le Not Available cephalexin 500 mg capsule active Not Available Not Available N ot Available cefdinir 300 mg capsule active Not Available Not Available N ot Available losartan 100 mg tablet active Not Available Not Available No t Available fluticasone propionate 50 mcg/actuation nasal spray,suspensi on active Not Available Not Available Not Available Ventolin HFA 90 mcg/actuation aerosol inhaler active Not Available Not Available Not Available Vitals Date Recorded Body height Body mass index (BMI) Body weight Oxygen saturation Oxygen saturation in Arterial blood by Pulse oximetry Heart rate Respiratory rate Systolic blood pressure Diastolic blood pressure Provider Name and Address Organization Details Last Updated DateTime 9 182.88 cm 34.4 kg/m2 412764. 46 g 98 % 98 % 80 /min 16 /min 150 mm[Hg] 80 mm[Hg] FIONA CRUM MD, Gadiel PRICE.C.C.P. NPI [id number] 8 [address], [place], [address], [place] [facility] 9 13:43:16 Date Recorded Body height Body mass index (BMI) Body weight Provider Name and Address Organization Details Last Updated DateTime 12/09/2015 182.88 cm 35.8 kg/m2 849383.2246 8 g FIONA CRUM MD, Gadiel PRICE.C.C.P. [address] [place] [address], [place], [address], [place] - [facility] 12/09/2015 11:22:18 Social History Question Answer Notes LastModified by Organizat ion Details LastModified Time Tobacco Smoking Status Never Smoker Not Available [employer] 06/19/2020 03:17:41 What Is Your Level Of Alcohol Consumption? Occasional [id number] Information not available 06/19/2020 What Is Your Level Of Caffeine Consumption? Occasional [id number] Information not available 06/19/2020 Marital Status katie Ramos n not available 12/09/2015 What Was The Date Of Your Most Recent Tobacco Screening? 10/02/2018 [id number] Information not available 06/19/2020 How Many Children Do You Have? 2 [id number] Information not available 06/19/2020 Sex: Unknown Functional Status None recorded. Mental Status None recorded. Family History Nothing Reported. Medical History Condition Response Hypertension Y Sleep Apnea Y Past Encounters Encounter ID Performer Location Encounter Start Date Encounter Closed Date Diagnosis/Indication Diagnosis SNOMED-CT Code Diagnosis ICD10 Code Diagnosis Note [id number] FIONA CRUM MD, Gadiel PRICE.C.C.P. [facility] (11) [address] [address] 12/09/2015 10:58:05 12/09/2015 11:57:03 Obstructive sleep apnea of adult 6559861349 103 G47.33 [id number] FIONA CRUM MD, Gadiel PRICE.C.C.P. [facility] (11) [address] [address] 10/02/2018 13:05:29 10/02/2018 13:58:17 Obstructive sleep apnea of adult 1714167094 103 G47.33 Health Concerns Section Related Observation LastModified by Organization Detai ls LastModified Time None Recorded Concern Status LastModified by Organization Details LastModified Time None Recorded Advance Directives Directive None Recorded Payers Encounter Date Sequence Insurance Name Policy Number Policy Hackett Covered Member ID Hackett Member ID Guarantor Name 12/09/2015 1 [place] [facility] (INDEMNITY) [id number] Joey Mcmahon [id number] Joey Mcmahon 10/02/2018 1 [place] [facility] [employer] (INDEMNITY) [id number] Joey Mcmahon [id number] Joey Mcmahon Notes Date Note Type Note Provider Name and Address Organization Details Recorded Time 12/09/2015 text/html CPAP f/upReporte d bypatient.CPAPPat ient is using CPAP regularly..; Patient estimates 6 hours of PAP use nightly.; The patient reports feeling better with CPAP; The patient reports no new medical problems.; No surgeries or hospitalizations reported since last visit.; The patient does not notice mask leaking.; Snoring is not observed when CPAP is used.; sleep related symptoms have markedly improved; weight is stable FIONA CRUM MD, Gadiel PRICE.C.C.P. I [id number] [address] [place] [address], [phone]/[facility] 12/09/2015 11:36:00 10/02/2018 text/html CPAP f/upReporte d bypatient.CPAPPat ient is using CPAP regularly..; Patient estimates 6 hours of PAP use nightly.; The patient reports feeling better with CPAP; The patient reports no new medical problems.; No surgeries or hospitalizations reported since last visit.; The patient does not notice mask leaking.; Snoring is not observed when CPAP is used.; sleep related symptoms have markedly improved; weight is stable FIONA CRUM MD, Gadiel PRICE.C.C.P. I [id number] [address] [place] [address], [phone], [facility] 10/02/2018 13:44:54
--- NOTE | 2024-10-18 13:26 | ED_ITS ---
HPI - General Adult General Chief complaint: Extremity Injury, Lower Stated complaint: R foot injury Time Seen by Provider: 10/18/24 11:59 History of Present Illness HPI narrative: 69-year-old male presenting to the emergency department for evaluation for contusion and injury to the top of the right foot. Patient reports that a bed railing struck him on the top of the foot. Patient describes pain at the top of the foot but denies any other pain or injury. Related Data Allergies Allergy/AdvReac Type Severity Reaction Status Date / Time lisinopril AdvReac Mild COUGH Verified 10/03/24 10:04 muscle relaxant-unknown name Allergy Mild Ulcers Uncoded 10/03/24 10:04 Review of Systems Review of Systems: All systems reviewed & are unremarkable except as noted in HPI and below PMFSH Past Medical History Medical History (Updated 10/18/24 @ 13:39 by Awais Villafuerte MD) BMI 38.0-38.9,adult Hyperlipidemia Obstructive sleep apnea Hypertension Complex tear of medial meniscus of left knee as current injury Effusion of left knee Primary osteoarthritis of both knees Family History Family History (Updated 10/03/24 @ 10:29 by MARIO [place]) Sibling Lung cancer Mother Diabetes mellitus Hypertension , Onset Age: 92 Pancreatic cancer Father Hypertension Other Family history of arthritis Family history of cardiovascular disease Family history of malignant neoplasm Social History Social History (Updated 10/03/24 @ 10:30 by MARIO [place]) Social History: He is a never smoker. Drinks beer socially, not daily. Denies illicit substance use. 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 He lives at home in [place] with his and two children. Smoking packs per day: 0 Smoking cigarettes per day: 0.0 Smoking status: Never smoker Second hand tobacco smoke exposure: Yes Alcohol intake: current Drinks per week: 4 Alcohol use details: social Substance use: never Substance use type: does not use Do You Feel Safe in your Home?: Yes Lack of Transportation: No Lack of Food: Never True Current Housing: I Have Housing Concerned About Future Housing: No Difficulty Paying Gas/Electric Bills: No Difficulty Paying for Meds: No Currently Unemployed: No Education: High School Diploma/GED Difficulty w/ Childcare or Family Care: No Living arrangements: with family Occupation/Education: retired 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 HEAD: normocephalic, atraumatic. EYES: PERRLA/EOMI, conjunctivae clear. NOSE: Normal no drainage EARS:TMS clear with good light reflex. THROAT: Pharynx clear, no exudate. NECK: Supple. No adenopathy, no masses. RESPIRATORY: Airway patent, respirations nonlabored. Clear to auscultation bilaterally, no rales, rhonchi, wheezing. CARDIOVASCULAR: Regular rate and rhythm without murmurs rubs or gallops. ABDOMINAL: Soft, nontender, nondistended, normal bowel sounds MUSCULOSKELETAL: No significant tenderness of distal great toe, mid foot or ankle. Does have tenderness at the base of the great toe on the left foot NEURO: Alert. Cranial nerves II through XII intact. Good gait. Good coordination SKIN: Warm, dry. Normal Color PSYCHIATRIC: Normal affect/mood. Course Vital Signs Vital signs: Vital Signs Temperature 97.6 F 10/18/24 10:34 Pulse Rate 88 10/18/24 10:34 Respiratory Rate 16 10/18/24 10:34 Blood Pressure 167/66 H 10/18/24 10:34 Pulse Oximetry 98 10/18/24 10:34 Oxygen Delivery Room Air 10/18/24 10:34 Temperature 97.6 F 10/18/24 10:34 Pulse Rate 88 10/18/24 10:34 Respiratory Rate 16 10/18/24 10:34 Blood Pressure 167/66 H 10/18/24 10:34 Pulse Oximetry 98 10/18/24 10:34 Oxygen Delivery Room Air 10/18/24 10:34 Medical Decision Making MDM Narrative Medical decision making narrative: 69-year-old male presenting to the emergency department for evaluation for an injury to his right foot. X-ray was negative for acute fracture dislocation. Patient did have an incidental finding of a slim metallic foreign body in the distal aspect of the great toe. Patient had no tenderness to palpation at this site. Patient's tenderness was at the dorsum of the foot at the proximal aspect of the great toe. No fracture dislocation. Patient was provided a postop shoe for limited range of motion and crutches for limited weight-bearing. Differential Diagnosis Differential Diagnosis: Ankle fracture, foot fracture, foot contusion, toe fracture, toe contusion Vital Signs Vital Signs: Vital Signs Temperature 97.6 F 10/18/24 10:34 Pulse Rate 88 10/18/24 10:34 Respiratory Rate 16 10/18/24 10:34 Blood Pressure 167/66 H 10/18/24 10:34 Pulse Oximetry 98 10/18/24 10:34 Oxygen Delivery Room Air 10/18/24 10:34 Temperature 97.6 F 10/18/24 10:34 Pulse Rate 88 10/18/24 10:34 Respiratory Rate 16 10/18/24 10:34 Blood Pressure 167/66 H 10/18/24 10:34 Pulse Oximetry 98 10/18/24 10:34 Oxygen Delivery Room Air 10/18/24 10:34 Imaging Data Radiologist's impression: Impressions Foot X-Ray 10/18/24 12:06 IMPRESSION: 1. Mild polyarticular osteoarthritis at the right foot. No acute osseous abnormality. 2. 3 thin wire-like metallic foreign bodies in the plantar soft tissues of the right first distal phalanx. Discharge Plan Discharge Clinical Impression: Contusion of foot Patient Disposition: Home, Self-Care Condition: Stable Instructions: Antibiotic Form, Crutch Instructions (ED), Post Surgical Shoe (ED) Additional Instructions: Postop shoe for limited range of motion and for comfort. Crutches for limited weight-bearing as needed. Home medications for pain control. Ice and elevate as directed. Have close follow-up with your primary care physician. Patient Language: Greenlandic Prescriptions: No Action amlodipine [Norvasc] 10 mg tablet 10 mg PO DAILY Qty: 90 1RF losartan-hydrochlorothiazide 100-12.5 mg tablet 1 tablet PO DAILY Qty: 90 1RF hydroxyzine HCl 25 mg tablet 25 mg PO TID PRN (Reason: anxiety) Qty: 30 0RF Follow-up/Referrals: Meir Li APRN [Primary Care Provider] -
== END 2024-10-18 13:50 | disposition home or self-care (01) ==
PROVIDERS: Emergency Provider Emergency Medicine; PCP Nurse Practitioner
DX: S90.31XA Contusion of right foot, initial encounter (principal); I10 Essential (primary) hypertension; E78.5 Hyperlipidemia, unspecified; G47.33 Obstructive sleep apnea (adult) (pediatric); M17.0 Bilateral primary osteoarthritis of knee; W20.8XXA Other cause of strike by thrown, projected or falling object, initial encounter
CPT/HCPCS: 73630; 99283

== ENCOUNTER 2024-12-07 22:44 | Emergency (ER) | payer OTHER, MEDICARE, SELFPAY ==
--- OUTSIDE RECORDS SUMMARY | 2024-12-07 22:47 | XMS_ITS | Continuity of Care Document ---
Author Organization [facility] Address [address] [place] [address] Phone Care Team Providers Care Geotechnical Engineer Name Role Phone Erik Li MD Unavailable Unavailable Medications Medication Instructions Dosage Effective Dates (start - stop) Status Comments FRANKIE-D 12 HOUR 120-60MG TAB 1 BID - Active NASONEX 50MCG APPLICS 2 QAM - Acti ve FLONASE 50MCG APPLICS 2 QPM - Acti ve Advance Directives Directive Yes / No Effective Date File Name No Information Encounters Encounter Description Practice Location Reason(s) For Visit Diagnoses Date Provider Providers Copied on Encounter [facility], [address], [place], [id number], tel:[phone] [facility] No Information Guillermo Valencia. [address], [id number], . tel:[phone] [facility], [address], [place], [address], tel:[phone] [facility] NASAL & SINUS DIS NECALLERGIC RHINITIS NEC Guillermo Valencia. [address], [id number], [place]. tel:[phone] [facility], [address], [place], [place], [address], tel:[phone] [facility] NASAL & SINUS DIS NECCHRONIC RHINITIS Guillermo Valencia. [address], [id number], . tel:[phone] Family History Family Member Type Diagnosis Age At Onset No Information Payers Payer name Insurance type Covered republican ID Authoriza tion(s) No Information Social History [...]
--- OUTSIDE RECORDS SUMMARY | 2024-12-07 22:47 | XMS_ITS | Data Portability ---
Author Organization [facility] Address [address] [facility] [address] [place] [address] Care Team Providers Care Ophthalmic Medical Technologist Name Role Phone DANILO GRECO Referring Provider Assessment Encounter Date Assessment Date Assessment LastModified [...] Recorded Time Obstructive sleep apnea of adult 4508212450932 Active FIONA CRUM MD, DAB, F.C.C.P. NPI [id number] [address] [facility] [address], [place], [address], [facility] 6 11:35:27 Problem Notes None recorded. Procedures Surgical History Date Name Laterality Status Provider Name and Address Organization Details Recorded Time Knee Surgery completed FIONA CRUM MD, Gadiel PRICE.C.C.P. [address], [place], [address], [facility] 10/02/2018 13:29:53 Imaging Results None recorded. Procedure Notes None recorded. Medical Equipment None Reported. Allergies Allergen ID Allergen Name Allergen Category Reaction Reaction Severity Criticality Documentation Date Start Date Code Code System Note Provider Name and Address Organization Details Recorded Time 5861 cyclobenz aprine hydrochlo ride medicatio n Not available Not available Not available 12/09/2015 55664 RxNorm Not Available Not Available Not Available [...] Updated DateTime 9 182.88 cm 34.4 kg/m2 200952. 46 g 98 % 98 % 80 /min 16 /min 150 mm[Hg] 80 mm[Hg] FIONA CRUM MD, Gadiel PRICE.C.C.P. NPI [id number] 8 [address], [place], [address], [place] [facility] 9 13:43:16 Date Recorded Body height Body mass index (BMI) Body weight Provider Name and Address Organization Details Last Updated DateTime 12/09/2015 182.88 cm 35.8 kg/m2 174893.9195 8 g FIONA CRUM MD, Gadiel PRICE.C.C.P. [address] [place] [address], [place], [address], [place] - [facility] 12/09/2015 11:22:18 Social History Question Answer Notes LastModified by Organizat ion Details LastModified Time Tobacco Smoking Status Never Smoker Not Available [facility] 06/19/2020 03:17:41 What Is Your Level Of Alcohol Consumption? Occasional [id number] Information not available 06/19/2020 What Is Your Level Of Caffeine Consumption? Occasional [id number] Information not available 06/19/2020 Marital Status katie Ramos n not available 12/09/2015 What Was The Date Of Your Most Recent Tobacco Screening? 10/02/2018 [id number] Information not available 06/19/2020 How Many Children Do You Have? 2 [id number] Information not available 06/19/2020 Sex: Unknown Functional Status None recorded. Mental Status None recorded. Family History Nothing Reported. Medical History Condition Response Sleep Apnea Y Hypertension Y Past Encounters Encounter ID Performer Location Encounter Start Date Encounter Closed Date Diagnosis/Indication Diagnosis SNOMED-CT Code Diagnosis ICD10 Code Diagnosis Note [id number] FIONA CRUM MD, Gadiel PRICE.C.C.P. NPFrida [id number] [facility] (11) [address] [address] 12/09/2015 10:58:05 12/09/2015 11:57:03 Obstructive sleep apnea of adult 7315764492 103 G47.33 [id number] FIONA CRUM MD, Gadiel PRICE.C.C.P. [facility] (11) [address] [address] 10/02/2018 13:05:29 10/02/2018 13:58:17 Obstructive sleep apnea of adult 5554041706 103 G47.33 Health Concerns Section Related Observation LastModified by Organization Detai ls LastModified Time None Recorded Concern Status LastModified by Organization Details LastModified Time None Recorded Advance Directives Directive None Recorded Payers Encounter Date Sequence Insurance Name Policy Number Policy Hackett Covered Member ID Hackett Member ID Guarantor Name 12/09/2015 1 [facility] [facility] (INDEMNITY) [id number] Joey Mcmahon [id number] Joey Mcmahon 10/02/2018 1 [place] [facility] (INDEMNITY) [id number] Joey Mcmahon [id number] Joey Mcmahon Notes Date Note Type [...] stable FIONA CRUM MD, Gadiel PRICE.C.C.P. I [id number] [address] [place] [address], [id number] 12/09/2015 11:36:00 10/02/2018 text/html CPAP f/upReporte d [...] stable FIONA CRUM MD, Gadiel PRICE.C.C.P. I [id number] [address] [place] [address], [phone], [facility] 10/02/2018 13:44:54
[2024-12-07 22:51] VITALS: BP 156/78; PULSE 77; RESP 16; TEMP 36.6; O2SAT 98
[2024-12-08 03:20] VITALS: BP 162/89; PULSE 72; RESP 12; O2SAT 100
[2024-12-08 03:53] VITALS: RESP 16
[2024-12-08 04:40] LABS: Influenza A QL RT-PCR Negative (Negative); Influenza B QL RT-PCR Negative (Negative); RSV RNA, RT-PCR Negative (Negative); SARS-CoV-2 RNA PCR Negative (Negative)
--- OUTSIDE RECORDS SUMMARY | 2024-12-08 07:41 | XMS_ITS | Continuity of Care Document ---
Author Organization [facility] Address [address] [place] [address] Phone Care Team Providers Care Cementer Name Role Phone Erik Li MD Unavailable [...] Diagnoses Date Provider Providers Copied on Encounter [facility], [address], [place], [place], [address], tel:[phone] [facility] No Information 1 Guillermo Erik. [address], [id number] , . tel: [phone] [facility], [address], [place], [place], [address], tel:[phone] [facility] NASAL & SINUS DIS NECALLERGIC RHINITIS NEC 6 Guillermo Erik. [address], [id number] , . tel: [phone] [facility], [address], [place], [place], [address], tel:[phone] [facility] CHRONIC RHINITISNASAL & SINUS DIS NEC 5 Guillermo Valencia. [address], [id number] , . tel: [phone] Family History Family Member Type Diagnosis Age At Onset No Information Payers Payer name Insurance type Covered democrat ID Authoriza tion(s) No Information Social History [...]
--- NOTE | 2024-12-08 07:48 | ED_ITS ---
HPI - General Adult General Chief complaint: Unspecified Stated complaint: cant swallow Time Seen by Provider: 12/08/24 07:04 History of Present Illness HPI narrative: Patient is a 69-year-old male who presents the ER with cough and difficulty swallowing. This has been ongoing for last week. It only occurs at night when he sleeping. He has not been using his CPAP. No fevers or chills or sweats. Mild sinus congestion. Feels like he will be wheezing and can get something up. He only takes losartan. Fevers or chills. Related Data Allergies Allergy/AdvReac Type Severity Reaction Status Date / Time lisinopril AdvReac Mild COUGH Verified 12/07/24 22:45 muscle relaxant-unknown name Allergy Mild Ulcers Uncoded 12/07/24 22:45 Review of Systems Constitutional: Constitutional: Reports no additional constitutional complaints ENT: Reports system reviewed and no additional complaints, except as documented Cardiovascular: Cardiovascular: Reports no additional cardiovascular complaints Respiratory: Respiratory: Reports no additional respiratory complaints Gastrointestinal: Gastrointestinal: Reports no additional gastrointestinal complaints [facility] Past Medical History Medical History (Updated 12/08/24 @ 07:51 by Eliseo Mccarty MD) BMI 38.0-38.9,adult Hyperlipidemia Obstructive sleep apnea Hypertension Complex tear of medial meniscus of left knee as current injury Effusion of left knee Primary osteoarthritis of both knees Family History Family History (Updated 10/03/24 @ 10:29 by MARIO [place]) Sibling Lung cancer Mother Diabetes mellitus Hypertension , Onset Age: 92 Pancreatic cancer Father Hypertension Other Family history of arthritis Family history of cardiovascular disease Family history of malignant neoplasm Social History Social History (Updated 10/03/24 @ 10:30 by MARIO [place]) Social History: He is a never smoker. Drinks beer socially, not daily. Denies illicit substance use. 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 He lives at home in [place] with his and two children. Smoking packs per day: 0 Smoking cigarettes per day: 0.0 Smoking status: Never smoker Second hand tobacco smoke exposure: Yes Alcohol intake: current Drinks per week: 4 Alcohol use details: social Substance use: never Substance use type: does not use Do You Feel Safe in your Home?: Yes Lack of Transportation: No Lack of Food: Never True Current Housing: I Have Housing Concerned About Future Housing: No Difficulty Paying Gas/Electric Bills: No Difficulty Paying for Meds: No Currently Unemployed: No Education: High School Diploma/GED Difficulty w/ Childcare or Family Care: No Living arrangements: with family Occupation/Education: retired 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 HEAD: Normocephalic, atraumatic. ENT: Mucous membranes moist. Normal appearing posterior oropharynx. Normal TMs bilaterally. NECK: Supple. CHEST: Clear to auscultation. No respiratory distress. HEART: Regular rate and rhythm. Normal peripheral pulses. EXTREMITIES: Normal range of motion. No edema. SKIN: Warm, dry, no rash. NEURO: Alert and oriented x3. PSYCH: Normal mood and affect. Course Course Emergency Course: Patient resting comfortably. We will start on steroids for potential mild bronchitis however you may be something from postnasal drip at night or even sleep apnea since it is not being controlled. Recommend he contact his PCP. Vital Signs Vital signs: Vital Signs Temperature 97.8 F 12/07/24 22:51 Pulse Rate 77 12/07/24 22:51 Respiratory Rate 16 12/07/24 22:51 Blood Pressure 156/78 H 12/07/24 22:51 Pulse Oximetry 98 12/07/24 22:51 Oxygen Delivery Room Air 12/07/24 22:51 Temperature 97.8 F 12/07/24 22:51 Pulse Rate 72 12/08/24 03:20 Respiratory Rate 16 12/08/24 03:53 Blood Pressure 162/89 H 12/08/24 03:20 Pulse Oximetry 100 12/08/24 03:20 Oxygen Delivery Room Air 12/08/24 03:20 Medical Decision Making Vital Signs Vital Signs: Vital Signs Temperature 97.8 F 12/07/24 22:51 Pulse Rate 77 12/07/24 22:51 Respiratory Rate 16 12/07/24 22:51 Blood Pressure 156/78 H 12/07/24 22:51 Pulse Oximetry 98 12/07/24 22:51 Oxygen Delivery Room Air 12/07/24 22:51 Temperature 97.8 F 12/07/24 22:51 Pulse Rate 72 12/08/24 03:20 Respiratory Rate 16 12/08/24 03:53 Blood Pressure 162/89 H 12/08/24 03:20 Pulse Oximetry 100 12/08/24 03:20 Oxygen Delivery Room Air 12/08/24 03:20 Lab Data Labs: Lab Results 12/08/24 Range/Units 03:52 Influenza A (RT-PCR) Negative (Negative) Influenza B (RT-PCR) Negative (Negative) RSV (RT-PCR) Negative (Negative) SARS-CoV-2 RNA (RT-PCR) Negative (Negative) Discharge Plan Discharge Clinical Impression: Bronchitis Patient Disposition: Home, Self-Care Condition: Stable Instructions: Acute Bronchitis (ED) Additional Instructions: Return ER if you cannot breathe, you cannot swallow, you lose consciousness, or you have additional concerns. Patient Language: [place] Islander Prescriptions: New prednisone 50 mg tablet 50 mg PO DAILY Qty: 6 0RF No Action amlodipine [Norvasc] 10 mg tablet 10 mg PO DAILY Qty: 90 1RF losartan-hydrochlorothiazide 100-12.5 mg tablet 1 tablet PO DAILY Qty: 90 1RF hydroxyzine HCl 25 mg tablet 25 mg PO TID PRN (Reason: anxiety) Qty: 30 0RF Follow-up/Referrals: Meir Li APRN [Primary Care Provider] - 1 Week
[2024-12-08 08:26] VITALS: BP 143/65; PULSE 71; RESP 18; O2SAT 100
== END 2024-12-08 08:27 | disposition home or self-care (01) ==
PROVIDERS: Student in an Organized Health Care Education/Training Program; Emergency Provider Emergency Medicine; PCP Nurse Practitioner
DX: J40 Bronchitis, not specified as acute or chronic (principal); Z20.822 Contact with and (suspected) exposure to COVID-19; I10 Essential (primary) hypertension; E78.5 Hyperlipidemia, unspecified; G47.33 Obstructive sleep apnea (adult) (pediatric); M17.0 Bilateral primary osteoarthritis of knee; Z77.22 Contact with and (suspected) exposure to environmental tobacco smoke (acute) (chronic); Z79.899 Other long term (current) drug therapy
CPT/HCPCS: 87637; 99283

== ENCOUNTER 2025-02-14 03:42 | Emergency (ER) | payer OTHER, MEDICARE, SELFPAY ==
--- OUTSIDE RECORDS SUMMARY | 2025-02-14 03:44 | XMS_ITS | Data Portability ---
Author Organization [facility]ENTERDavid Hernandez SI (11) Address [address] [facility] [address] [place] [address] Care Team Providers Care Baseball Winder Name Role Phone DANILO GRECO Referring Provider [...] Recorded Time Obstructive sleep apnea of adult [id number] Active FIONA CRUM MD, DAB, F.C.C.P. NPI [id number] [address] [facility], [place], [address], [facility]/[place]/[facility] 6 11:35:27 Problem Notes None recorded. Procedures Surgical History Date Name Laterality Status Provider Name and Address Organization Details Recorded Time Knee Surgery completed FIONA CRUM MD, Gadiel PRICE.C.C.P. [address], [address], [facility] 10/02/2018 13:29:53 Imaging Results None recorded. Procedure Notes None recorded. Medical Equipment None Reported. Allergies Allergen ID Allergen Name Allergen Category Reaction Reaction Severity Criticality Documentation Date Start Date Code Code System Note Provider Name and Address Organization Details Recorded Time 5861 cyclobenz aprine hydrochlo ride medicatio n Not available Not available Not available 12/09/2015 97812 RxNorm FIONA CRUM MD, Gadiel PRICE.C.C.P. NPI [id number] 8 [facility] [address], [address] , [facility] 6 11:22:18 Medications Name Sig Start Date Stop Date [...] Updated DateTime 9 182.88 cm 34.4 kg/m2 860530. 46 g 98 % 98 % 80 /min 16 /min 150 mm[Hg] 80 mm[Hg] FIONA CRUM MD, Gadiel PRICE.C.C.P. NPI [id number] [address], [address], [place] - [facility] 9 13:43:16 Date Recorded Body height Body mass index (BMI) Body weight Provider Name and Address Organization Details Last Updated DateTime 12/09/2015 182.88 cm 35.8 kg/m2 122616.6570 8 g FIONA CRUM MD, Daija PRICEC.C.P. [address],[facility], [place], [address], [place] - [facility] 12/09/2015 11:22:18 Social History Question Answer Notes LastModified by Organizat ion Details LastModified Time Tobacco Smoking Status Never Smoker Not Available [employer] 06/19/2020 03:17:41 What Is Your Level Of Caffeine Consumption? Occasional [id number] Information not available 06/19/2020 Marital Status katie Ramos n not available 12/09/2015 What Was The Date Of Your Most Recent Tobacco Screening? 10/02/2018 [id number] Information not available 06/19/2020 How Many Children Do You Have? 2 [id number] Information not available 06/19/2020 Sex: Unknown Functional Status Question Answer Note LastModified by Organizat ion Details LastModified Time What is your level of alcohol consumption? Occasional [id number] Information not available 06/19/2020 Mental Status None recorded. Family History Nothing Reported. Medical History Condition Response Sleep Apnea Y Hypertension Y Past Encounters Encounter ID Performer Location Encounter Start Date Encounter Closed Date Diagnosis/Indication Diagnosis SNOMED-CT Code Diagnosis ICD10 Code Diagnosis Note [id number] FIONA CRUM MD, Gadiel PRICE.C.C.P. [facility] (11) [address] [facility] [address] [place] [address] 12/09/2015 10:58:05 12/09/2015 11:57:03 Obstructive sleep apnea of adult 4467716178 103 G47.33 [id number] FIONA CRUM MD, Gadiel PRICE.C.C.P. [facility] (11) [address] [facility] [address] [place] [address] 10/02/2018 13:05:29 10/02/2018 13:58:17 Obstructive sleep apnea of adult 5864719078 103 G47.33 Health Concerns Section Related Observation LastModified by Organization Detai ls LastModified Time None Recorded Concern Status LastModified by Organization Details LastModified Time None Recorded Advance Directives Directive None Recorded Payers Insurance Date Sequence Insurance Name Policy Number Policy Hackett Covered Member ID Hackett Member ID Guarantor Name 09/29/2018 1 [employer] (INDEMNITY) [id number] Joey Mcmahon [id number] Joey Mcmahon Notes Date Note Type [...] improved; weight is stable FIONA CRUM MD, ALBERT, F.C.C.P. [facility] [id number] [address] [place] [address], [id number] [place] [address]/[facility] 12/09/2015 11:36:00 10/02/2018 text/html CPAP f/upReporte d [...] improved; weight is stable FIONA CRUM MD, ALBERT, F.C.C.P. I [id number] [address] [place] [address], [phone], [facility] 10/02/2018 13:44:54
[2025-02-14 03:47] VITALS: BP 149/83; PULSE 77; RESP 16; TEMP 36.6; O2SAT 98
--- NOTE | 2025-02-14 03:52 | ED_ITS ---
HPI - Ear Problem General Chief complaint: Ear Stated complaint: left ear Time Seen by Provider: 02/14/25 03:44 History of Present Illness HPI Narrative: Patient is a 69-year-old male who presents ER with left ear pain. Ongoing over last 3-4 days. Was seen at urgent care and prescribed Augmentin to treat an ear infection. Symptoms have continued to worsen. He felt like he heard a pop yesterday and has had some drainage. He hears bubbles like he is underwater. No fevers or chills. No dizziness. Related Data Allergies Allergy/AdvReac Type Severity Reaction Status Date / Time lisinopril AdvReac Mild COUGH Verified 12/07/24 22:45 muscle relaxant-unknown name Allergy Mild Ulcers Uncoded 12/07/24 22:45 Review of Systems Constitutional: Constitutional: Reports no additional constitutional complaints ENT: Reports system reviewed and no additional complaints, except as documented [facility] Past Medical History Medical History (Updated 02/14/25 @ 03:58 by Eliseo Mccarty MD) BMI 38.0-38.9,adult Hyperlipidemia Obstructive sleep apnea Hypertension Complex tear of medial meniscus of left knee as current injury Effusion of left knee Primary osteoarthritis of both knees Family History Family History (Updated 10/03/24 @ 10:29 by MARIO Brewster) Sibling Lung cancer Mother Diabetes mellitus Hypertension , Onset Age: 92 Pancreatic cancer Father Hypertension Other Family history of arthritis Family history of cardiovascular disease Family history of malignant neoplasm Social History Social History (Updated 10/03/24 @ 10:30 by MARIO Brewster) Social History: He is a never smoker. Drinks beer socially, not daily. Denies illicit substance use. 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 He lives at home in [place] with his and two children. Smoking packs per day: 0 Smoking cigarettes per day: 0.0 Smoking status: Never smoker Second hand tobacco smoke exposure: Yes Alcohol intake: current Drinks per week: 4 Alcohol use details: social Substance use: never Substance use type: does not use Do You Feel Safe in your Home?: Yes Lack of Transportation: No Lack of Food: Never True Current Housing: I Have Housing Concerned About Future Housing: No Difficulty Paying Gas/Electric Bills: No Difficulty Paying for Meds: No Currently Unemployed: No Education: High School Diploma/GED Difficulty w/ Childcare or Family Care: No Living arrangements: with family Occupation/Education: retired 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 HEAD: Normocephalic, atraumatic. ENT: Mucous membranes moist. Right ear canal and tympanic membrane normal. Left tympanic membrane unable to be visualized due to edema and debris within the left ear canal but no cerumen impaction. Mild discomfort with manipulation of the left external ear. No tenderness over the mastoid or erythema. EXTREMITIES: Normal range of motion/strength, ambulatory without issue NEURO: Alert and oriented x3. PSYCH: Normal mood and affect. Course Course Emergency Course: On evaluation patient has edematous ear canal on the left side with some discharge. Difficult to tell if this represents otitis externa or if he has otitis media with rupture. Will continue oral antibiotic in add additional ear drops. Patient educated on treatment plan and verbalized understanding. Recommend follow-up with an Ear Nose and Throat physician. Discharge Plan Discharge Clinical Impression: Otitis media Patient Disposition: Home Condition: Stable Instructions: Antibiotic Form Additional Instructions: You are being started on additional antibiotics since your eardrum ruptured. Continue your oral antibiotic and then use this ear drop as well. Follow-up with ENT for further treatment evaluation. Return ER if you have severe headache, you lose consciousness, you have fever over 100.4? F, you have additional concerns. Patient Language: Syriac Prescriptions: New ciprofloxacin-dexamethasone 0.3-0.1 % drops,suspension 4 drp EACH EAR Q12H 7 Days Qty: 7.5 0RF hydrocodone-acetaminophen 5-325 mg tablet 1 tablet PO Q6H PRN (Reason: pain) Qty: 10 0RF No Action amlodipine [Norvasc] 10 mg tablet 10 mg PO DAILY Qty: 90 1RF losartan-hydrochlorothiazide 100-12.5 mg tablet 1 tablet PO DAILY Qty: 90 1RF hydroxyzine HCl 25 mg tablet 25 mg PO TID PRN (Reason: anxiety) Qty: 30 0RF prednisone 50 mg tablet 50 mg PO DAILY Qty: 6 0RF Follow-up/Referrals: Keith Cleveland MD [Physician] - 1 Week Meir Li APRN [Primary Care Provider] -
[2025-02-14] MEDS: HYDROcodone/acetaminophen (*CRX) 5-325 MG TABLET 1 TAB PO (04:28)
[2025-02-14 04:31] VITALS: BP 148/74; PULSE 78; RESP 16; TEMP 36.6; O2SAT 98
== END 2025-02-14 04:31 | disposition home or self-care (01) ==
LOC: ANHED 04:23
PROVIDERS: Emergency Provider Emergency Medicine; PCP Nurse Practitioner
DX: H66.92 Otitis media, unspecified, left ear (principal); I10 Essential (primary) hypertension; E78.5 Hyperlipidemia, unspecified; G47.33 Obstructive sleep apnea (adult) (pediatric); M17.0 Bilateral primary osteoarthritis of knee
CPT/HCPCS: 99283; A9270